=== PATIENT | female | born 1995 | race American Indian/Alaskan Native ===

== ENCOUNTER 2017-10-14 10:24 | Outpatient (CLI) | payer MEDICAID ==
[2017-10-14 12:00] VITALS: BP 108/56
[2017-10-14] MEDS ORDERED: LACTATED RINGERS 500 ML IV ONE (12:03)
[2017-10-14] MEDS ORDERED: LACTATED RINGERS 1,000 ML IV ONE (12:30)
[2017-10-14] MEDS ORDERED: TYLENOL PO ONE (12:50)
[2017-10-14 13:41] LABS: Bilirubin,Urine NEG (Negative); Blood,Urine NEG (Negative); Color,Urine Yellow (Yellow); Mucus,Urine FEW /HPF; Nitrite,Urine NEG (Negative); Protein,Urine <15 mg/dL mg/dL (Negative); Urobilinogen,Urine < 2.0 mg/dL (<2.0)
== END 2017-10-14 14:30 | disposition home or self-care (01) ==
LOC: EDSTATUS 11:25 → TRG 11:34
PROVIDERS: ATTEND Obstetrics & Gynecology
DX: O26.892 Other specified pregnancy related conditions, second trimester (principal); R52 Pain, unspecified; Z3A.22 22 weeks gestation of pregnancy
CPT/HCPCS: 81001; 96360; J7120